=== PATIENT | female | born 2000 | race Caucasian/White ===

== ENCOUNTER 2021-11-11 00:03 | Emergency (ER) | payer MEDICAID, OTHER ==
[~2021-11-11] VITALS: Ht 154.9 cm; Wt 56.7 kg
[2021-11-11 00:28] VITALS: BP 119/64
--- NOTE | 2021-11-11 00:34 | NUR ---
TO LOBBY FOLLOWING TRIAGE
[2021-11-11] MEDS ORDERED: LIDOCAINE/EPI MPF 1%1:200000 30 ML VIAL INJ ONE (02:15)
[2021-11-11] MEDS ORDERED: SULF-59 PO ×2 (03:25→11:15)
[2021-11-11] MEDS ORDERED: CEPH-588 PO ×2 (03:25→11:15)
--- NOTE | 2021-11-11 04:00 | NUR ---
Patient discharged with v/s stable. Written and verbal after care instructions given and explained. Patient alert, oriented and verbalized understanding of instructions. Ambulatory with steady gait. All questions addressed prior to discharge. ID band removed. Patient advised to follow up with PMD. Rx of KEFLEX,BACTRIM DS given. Patient educated on indication of medication including possible reaction and side effects. Opportunity to ask questions provided and answered.
[2021-11-11 04:29] VITALS: BP 111/62
== END 2021-11-11 04:00 | disposition home or self-care (01) ==
LOC: MED 00:03
DX: L02.31 Cutaneous abscess of buttock (principal); L03.317 Cellulitis of buttock; Z79.2 Long term (current) use of antibiotics
CPT/HCPCS: 87070; 87075; 87186; 87205; 99283

== ENCOUNTER 2022-06-18 18:41 | Emergency (ER) | payer MEDICAID ==
[~2022-06-18] VITALS: Ht 157.5 cm; Wt 56.7 kg
[~2022-06-18 18:41] MED LIST: CEPH-588 PO; SULF-59 PO
[2022-06-18 20:12] VITALS: BP 110/74
[2022-06-18] MEDS ORDERED: IBUP-2213 PO (22:58)
--- NOTE | 2022-06-19 00:25 | NUR ---
pt cleared for d/c. at time of d/c pt not found in lobby or outside. pt left without instructions
== END 2022-06-19 00:25 | disposition home or self-care (01) ==
LOC: MED 18:41
DX: B34.9 Viral infection, unspecified (principal); Z79.1 Long term (current) use of non-steroidal anti-inflammatories (NSAID); Z79.2 Long term (current) use of antibiotics
CPT/HCPCS: 99281